=== PATIENT | female | born 1950 | race Caucasian/White ===

== ENCOUNTER 2025-02-07 10:32 | Outpatient (RCR) | payer MEDICARE, OTHER, SELFPAY ==
[2025-02-07 10:45] VITALS: BP 192/93
[2025-02-07] MEDS: EVENITY 105 MG SC ×2 (10:49)
== END 2025-02-08 10:51 | disposition home or self-care (01) ==
LOC: OID 10:32
PROVIDERS: ATTENDING PHYSICIAN Internal Medicine Endocrinology, Diabetes & Metabolism; FAMILY PHYSICIAN Internal Medicine
DX: M81.0 Age-related osteoporosis without current pathological fracture (principal)
CPT/HCPCS: 96372; J3111

== ENCOUNTER 2025-03-07 09:55 | Outpatient (RCR) | payer MEDICARE, OTHER, SELFPAY ==
[2025-03-07 10:07] VITALS: BP 169/71
[2025-03-07] MEDS: EVENITY 105 MG SC ×2 (10:20)
== END 2025-03-08 11:05 | disposition home or self-care (01) ==
LOC: OID 09:55
PROVIDERS: ATTENDING PHYSICIAN Internal Medicine Endocrinology, Diabetes & Metabolism; FAMILY PHYSICIAN Internal Medicine
DX: M81.0 Age-related osteoporosis without current pathological fracture (principal)
CPT/HCPCS: 96372; J3111

== ENCOUNTER 2025-04-04 09:58 | Outpatient (RCR) | payer MEDICARE, OTHER, SELFPAY ==
[2025-04-04 10:13] VITALS: BP 175/89
[2025-04-04] MEDS: EVENITY 105 MG SC ×2 (10:20)
== END 2025-04-05 09:29 | disposition home or self-care (01) ==
LOC: OID 09:58
PROVIDERS: ATTENDING PHYSICIAN Internal Medicine Endocrinology, Diabetes & Metabolism; FAMILY PHYSICIAN Internal Medicine
DX: M81.0 Age-related osteoporosis without current pathological fracture (principal)
CPT/HCPCS: 96372; J3111